=== PATIENT | male | born 1965 | race Caucasian/White ===

== ENCOUNTER 2020-07-22 13:35 | Emergency (ER) | payer OTHER ==
[~2020-07-22 13:35] MED LIST: IBUPROFEN800 MG PO; NICOTINE PATCH1 EAC2 TD; VIBRAMYCIN100 MG PO
[2020-07-22] MEDS ORDERED: NORCO 5-325 TA1 EACH PO (16:32)
== END 2020-07-22 16:50 | disposition home or self-care (01) ==
LOC: FER 13:35
DX: S46.911A Strain of unspecified muscle, fascia and tendon at shoulder and upper arm level, right arm, initial encounter (principal); M25.551 Pain in right hip; I10 Essential (primary) hypertension; W00.0XXA Fall on same level due to ice and snow, initial encounter; Y92.009 Unspecified place in unspecified non-institutional (private) residence as the place of occurrence of the external cause
CPT/HCPCS: 71046; 73030; 73502

== ENCOUNTER 2022-02-05 17:51 | Emergency (ER) | payer OTHER ==
[~2022-02-05 17:51] MED LIST changes: +NORCO 5-325 TA1 EACH PO
== END 2022-02-05 18:59 | disposition left against medical advice (07) ==
LOC: FER 17:51
DX: Z53.21 Procedure and treatment not carried out due to patient leaving prior to being seen by health care provider (principal)

== ENCOUNTER 2022-02-15 14:57 | Emergency (ER) | payer OTHER ==
[2022-02-15] MEDS ORDERED: CEPHALEXIN500 MG PO (16:08)
== END 2022-02-15 16:28 | disposition home or self-care (01) ==
LOC: FER 14:57
DX: L02.512 Cutaneous abscess of left hand (principal); Z28.310 Unvaccinated for COVID-19
CPT/HCPCS: 87070; 87205